=== PATIENT | female | born 1980 | race Two or more races ===

== ENCOUNTER 2021-06-28 13:07 | Inpatient (IN) | payer BC, OTHER ==
[~2021-06-28] VITALS: Ht 154.9 cm; Wt 86.4 kg
[2021-06-28 14:18] LABS: Basophils # (auto) 0.1 10 ^3/uL (0-0.2); Eosinophils # (auto) 0 10 ^3/uL (0-0.8); Eosinophils % (auto) 0.1 % (0.0-7.0); Neutrophils # (auto) 12.3 10 ^3/uL (1.6-8.6)
[2021-06-28 14:20] LABS: Basophils % (auto) 0.4 % (0.0-2.0); Hematocrit 33.1 % (36.0-46.0); Hemoglobin 10.6 g/dL (12.2-16.2); Lymphocytes # (auto) 2.6 10 ^3/uL (0.4-5.4); Lymphocytes % (auto) 16.4 % (10.0-50.0); Mean Corpuscular Hemoglobin 24.1 pg (28.0-32.0); Mean Corpuscular Hgb Conc. 32.1 g/dL (32.0-36.0); Mean Corpuscular Volume 75.1 fL (80.0-100.0); Monocytes % (auto) 6.2 % (0.0-12.0); Neutrophils % (auto) 76.9 % (37.0-80.0); Nucleated Red Blood Cells % 0.1 %; Red Blood Cells 4.41 10^6/uL (4.0-5.20); Red Cell Distribution Width 16.9 % (11.8-14.3)
[2021-06-28 14:30] LABS: INR 1.05 (0.9-1.15); Partial Thromboplastin Time 21.1 sec (23.6-33.0)
[2021-06-28 14:34] LABS: Lactic Acid w/Reflex 3.6 mmol/L (0.4-2.0)
[2021-06-28 14:37] LABS: Albumin 3.6 g/dL (3.4-5.0); BUN/Creatinine Ratio 15.8; Calcium 8.7 mg/dL (8.5-10.1); Magnesium 2.1 mg/dL (1.6-2.6); Potassium 3.8 mmol/L (3.5-5.1)
[2021-06-28 14:45] LABS: Bilirubin, Total 0.4 mg/dL (0.2-1.0); Total Protein 7.3 g/dL (6.4-8.2)
[2021-06-28] MEDS ORDERED: ONDANSETRON HCL 4 MG/2 ML VIAL IV ONE (15:15)
[2021-06-28] MEDS ORDERED: SODIUM CHLORIDE 0.9% 1,000 ML IV ONE (17:30)
[2021-06-28 18:19] LABS: Basophils # (auto) 0 10 ^3/uL (0-0.2); Basophils % (auto) 0.3 % (0.0-2.0); Eosinophils # (auto) 0 10 ^3/uL (0-0.8); Eosinophils % (auto) 0.1 % (0.0-7.0); Hematocrit 29.7 % (36.0-46.0); Hemoglobin 9.5 g/dL (12.2-16.2); Lymphocytes # (auto) 1.7 10 ^3/uL (0.4-5.4); Lymphocytes % (auto) 13.3 % (10.0-50.0); Mean Corpuscular Hemoglobin 24.1 pg (28.0-32.0); Mean Corpuscular Hgb Conc. 32.2 g/dL (32.0-36.0); Monocytes # (auto) 0.6 10 ^3/uL (0-1.3); Monocytes % (auto) 4.4 % (0.0-12.0); Neutrophils # (auto) 10.7 10 ^3/uL (1.6-8.6); Neutrophils % (auto) 81.9 % (37.0-80.0); Red Blood Cells 3.96 10^6/uL (4.0-5.20); Red Cell Distribution Width 16.6 % (11.8-14.3); White Blood Cell 13.1 10^3/uL (4.4-10.8)
[2021-06-28] MEDS ORDERED: MORPHINE SULFATE INJECTION 2 MG/ML SYRG IV PRN (22:15)
[2021-06-28] MEDS ORDERED: TEMAZEPAM 15 MG CAP PO PRN (22:15)
[2021-06-28] MEDS ORDERED: ONDANSETRON HCL 4 MG/2 ML VIAL IV PRN (22:15)
[2021-06-28] MEDS ORDERED: NITROGLYCERIN 0.4 MG SL TAB SL PRN (22:15)
[2021-06-28 23:21] LABS: Hemoglobin 8.5 g/dL (12.2-16.2)
[2021-06-29] VITALS (9 sets, daily range): BP systolic 108–132; BP diastolic 62–82
[2021-06-29] MEDS ORDERED: AMLO-496 PO (00:37)
[2021-06-29 05:27] LABS: Basophils # (auto) 0 10 ^3/uL (0-0.2); Basophils % (auto) 0.6 % (0.0-2.0); Eosinophils # (auto) 0.1 10 ^3/uL (0-0.8); Eosinophils % (auto) 0.8 % (0.0-7.0); Hematocrit 21.6 % (36.0-46.0); Hemoglobin 7.3 g/dL (12.2-16.2); Lymphocytes # (auto) 3.2 10 ^3/uL (0.4-5.4); Lymphocytes % (auto) 42.3 % (10.0-50.0); Mean Corpuscular Hemoglobin 25.4 pg (28.0-32.0); Mean Corpuscular Hgb Conc. 33.7 g/dL (32.0-36.0); Mean Corpuscular Volume 75.6 fL (80.0-100.0); Monocytes # (auto) 0.7 10 ^3/uL (0-1.3); Monocytes % (auto) 9.7 % (0.0-12.0); Neutrophils # (auto) 3.5 10 ^3/uL (1.6-8.6); Neutrophils % (auto) 46.6 % (37.0-80.0); Red Blood Cells 2.85 10^6/uL (4.0-5.20); Red Cell Distribution Width 17.3 % (11.8-14.3); White Blood Cell 7.5 10^3/uL (4.4-10.8)
[2021-06-29 05:39] LABS: Albumin 2.7 g/dL (3.4-5.0); Calcium 7.7 mg/dL (8.5-10.1); Potassium 3.6 mmol/L (3.5-5.1)
[2021-06-29 05:41] LABS: BUN/Creatinine Ratio 21.2
[2021-06-29 05:44] LABS: Bilirubin, Total 0.3 mg/dL (0.2-1.0); Total Protein 5.6 g/dL (6.4-8.2)
[2021-06-29] MEDS ORDERED: IBUPROFEN 600 MG TAB PO ONE (06:00)
[2021-06-29] MEDS: IBUPROFEN 400 MG TAB PO SCH ×3 (07:10→21:08)
[2021-06-29] MEDS ORDERED: FERROUS SULFATE 325mg EC TAB PO SCH (08:00)
[2021-06-29] MEDS: amLODIPine BESYLATE 5 MG TAB PO SCH (09:31)
[2021-06-29] MEDS: PANTOPRAZOLE 40 MG TAB PO SCH (09:32)
[2021-06-29] MEDS: medroxyPROGESTERone ACETATE 5 MG TAB PO SCH ×3 (09:35→21:08)
[2021-06-29] MEDS ORDERED: SODIUM FERR GLUC 62.5MG/5ML 125 MG in SODIUM CHL 0.9% 100 ML IV ONE (13:00)
[2021-06-29] MEDS ORDERED: FUROSEMIDE 20 MG TAB PO ONE (13:15)
[2021-06-29 13:46] LABS: % Iron Saturation 5.3 % (15-50)
[2021-06-30 05:00] VITALS: BP 113/68
[2021-06-30] MEDS: medroxyPROGESTERone ACETATE 5 MG TAB PO SCH (05:51)
[2021-06-30] MEDS: IBUPROFEN 400 MG TAB PO SCH (05:51)
[2021-06-30 06:19] LABS: Hematocrit 23.1 % (36.0-46.0); Hemoglobin 7.9 g/dL (12.2-16.2)
[2021-06-30 09:00] VITALS: BP 131/69
[2021-06-30] MEDS: amLODIPine BESYLATE 5 MG TAB PO SCH (09:18)
[2021-06-30] MEDS: PANTOPRAZOLE 40 MG TAB PO SCH (09:18)
[2021-06-30] MEDS ORDERED: SODIUM FERR GLUC 62.5MG/5ML 125 MG in SODIUM CHL 0.9% 100 ML IV SCH (12:00)
[2021-06-30 13:00] VITALS: BP 124/72
[2021-06-30] MEDS ORDERED: MEDR5TAB28 PO (13:23)
[2021-06-30] MEDS ORDERED: FER325T PO (13:23)
[2021-06-30] MEDS ORDERED: MEDR5TAB5 PO (13:23)
[2021-06-30] MEDS ORDERED: IBUP400T23 PO (13:24)
[2021-06-30 15:32] VITALS: BP 124/72
== END 2021-06-30 17:25 | disposition home or self-care (01) | DRG 760 ==
LOC: ER 13:07 → EDBD 13:07 → TELE 22:12 → TELE-WESTW 23:41
PROVIDERS: ADMIT Nurse Practitioner; ATTEND Internal Medicine
PROC: 30233N1 Transfusion of Nonautologous Red Blood Cells into Peripheral Vein, Percutaneous Approach (ICD-10-PCS; principal; 2021-06-29)
DX: D25.9 Leiomyoma of uterus, unspecified (principal); D62 Acute posthemorrhagic anemia; R55 Syncope and collapse; Z20.822 Contact with and (suspected) exposure to COVID-19; D50.9 Iron deficiency anemia, unspecified; E66.01 Morbid (severe) obesity due to excess calories; E78.00 Pure hypercholesterolemia, unspecified; E78.5 Hyperlipidemia, unspecified; I10 Essential (primary) hypertension; R73.03 Prediabetes; Z68.36 Body mass index [BMI] 36.0-36.9, adult; Z80.9 Family history of malignant neoplasm, unspecified
CPT/HCPCS: 36415; 71045; 76856; 80053; 83540; 83550; 83605; 83735; 84484; 84702; 85014; 85018; 85025; 85610; 85730; 86850; 86900; 86901; 86920; 93005; 96361; 96374; G0378; J2405